=== PATIENT | male | born 1990 | race African-American/Black ===

== ENCOUNTER 2016-12-19 18:33 | Emergency (ER) | payer BC ==
[2016-12-19] MEDS ORDERED: Ketorolac 60 MG/2 ML SDV IM ONE (18:46)
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
[2016-12-19] MEDS ORDERED: Sodium Chloride 0.9% 10 ML Syringe FLUSH PRN (19:55)
[2016-12-19] MEDS ORDERED: Sodium Chloride 0.9% 2.5 ML Syringe FLUSH PRN (19:55)
[2016-12-19] MEDS ORDERED: HYDROmorphone 1 MG/ML Syringe IVPUSH ONE (20:18)
[2016-12-19 21:18] LABS: CHLORIDE,CL 109 mmol/L (98-110); SODIUM,NA 141 mmol/L (136-146)
[2016-12-19 21:33] VITALS: BP 162/63
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
== END 2016-12-19 21:22 ==
LOC: MW.ED 18:33
DX: S43.111A Subluxation of right acromioclavicular joint, initial encounter (principal); M79.89 Other specified soft tissue disorders; V86.99XA Unspecified occupant of other special all-terrain or other off-road motor vehicle injured in nontraffic accident, initial encounter; Y92.410 Unspecified street and highway as the place of occurrence of the external cause
CPT/HCPCS: 73030; 73590; 80053; 82550; 85025; 96372; 96374; 99284; J1170; J1885